=== PATIENT | male | born 1965 | race Caucasian/White ===

== ENCOUNTER 2016-05-07 15:16 | Inpatient (IN) | payer OTHER ==
--- NOTE | ~2016-05-07 | HP ---
Unit #: [id number] #: [id number] Patient: ALEXY MENDOZA [id number] [place] [address] [id number] MR#: [id number] NAME: ALEXY MENDOZA. ROOM: [facility] Age: 50 Sex: M Admission Date: 05/07/2016 : 1965 Attending Physician: Sarbjit Rodriguez M.D. Admitting Physician: Sarbjit Rodriguez M.D. Primary Care Physician: Generic Doctor Not In System HISTORY AND PHYSICAL HISTORY OF PRESENT ILLNESS Alexy is a 50 year old admitted to [facility] because of his polysubstance abuse which includes alcohol, IV heroin, methamphetamine and benzodiazepines. PAST MEDICAL HISTORY 1. Long history of polysubstance abuse to include IV drugs. 2. High blood pressure. 3. Hyperlipidemia. 4. Diabetes mellitus. 5. History of withdrawal seizures. 6. Lupus. PAST SURGICAL HISTORY Nothing reported ALLERGIES Penicillin (anaphylaxis). SOCIAL HISTORY Smokes 1 1/2 packs per day. Drinks alcohol frequently and has a history of poly illicit substance abuse. FAMILY HISTORY Medically noncontributory. REVIEW OF SYSTEMS CONSTITUTIONAL: No fever or chills. HEENT: Denies any sore throat, ear pain or runny nose. CARDIOVASCULAR: Denies chest pain, irregular heart rhythm or palpitations. CHEST: Denies shortness of breath or cough. No hemoptysis. GASTROINTESTINAL: Denies nausea, vomiting, diarrhea or chronic constipation. ENDOCRINE: Denies history of increased thirst or urination. No recent significant weight loss or gain. GENITOURINARY: Denies dysuria, frequency, or hematuria. SKIN: Denies any rashes. HEMATOLOGIC: Denies history of increased bleeding or bruising. MUSCULOSKELETAL: Denies any hot, swollen joints. No generalized muscle pain. NEUROLOGIC: Denies problems with vision or speech. No frequent, severe headaches. No numbness, tingling or weakness in any extremities. Denies loss of bladder or bowel control. Unit #: [id number] #: [id number] Patient: ALEXY MENDOZA CURRENT MEDICATIONS 1. Detox protocol 2. NovoLog per sliding scale. PHYSICAL EXAMINATION GENERAL: Alert, well-nourished, in no apparent distress. VITAL SIGNS: Blood pressure 170/100, heart rate 80, respirations 16, temperature 98.6. WEIGHT: 185 pounds. HEIGHT: 5'10". SKIN: Warm and dry without rash or lesion. HEENT: Normocephalic. TMs not viewed. Oral and nasal passages clear. Conjunctivae clear. Pupils equal, round and reactive to light and accommodation. Extraocular movements intact. NECK: Supple without lymphadenopathy or thyromegaly. HEART: Regular rate and rhythm without murmur. LUNGS: Clear. ABDOMEN: Soft, nontender. : Not done. EXTREMITIES: No evidence of cyanosis, clubbing or edema. Moves all extremities without focal deficit. NEUROLOGICAL: Grossly within normal limits. Cranial Nerves: II: Visual kurtz are intact. III, IV AND : Extraocular movements are intact. Pupils are equal, round and reactive to light. V: Facial sensation is grossly normal. VII: Facial movements and expression are normal. VIII: Auditory acuity grossly intact. IX, X: Uvula is midline. Phonation is normal. XI: Patient shrugs shoulders and turns head normally. XII: Tongue protrudes in the midline. Sensory and Motor Function: Sensory and motor sensation is grossly normal. Motor: moves all extremities well. Coordination: Gait is normal. Deep Tendon Reflexes: Intact. IMPRESSION Psychiatric admission RECOMMENDATIONS PSYCHIATRIC: Per psychiatrist. MEDICAL: I see no contraindications to participating in facility's activities. MEDICAL PROGNOSIS Good. MEDICAL CONDITION Stable. Dictated by... Celia Zamora P.A.-C. for Luis Champagne M.D. JBRENNON/elder Unit #: [id number] #: [id number] Patient: ALEXY MENDOZA Alex TD: 05/07/2016 20:32 JOB #: [id number] HISTORY AND PHYSICAL X Celia Zamora X HISTORY AND PHYSICAL
--- NOTE | ~2016-05-07 | PA ---
Unit #: [id number] #: [id number] Patient: AMINA MENDOZA [id number] [place] [address] [id number] MR#: [id number] NAME: AMINA MENDOZA. ROOM: 75 Age: 50 Sex: M Admission Date: 05/07/2016 : 1965 Date of Assessment: 05/08/2016 Attending Physician: Sarbjit Rodriguez M.D. Admitting Physician: Sarbjit Rodriguez M.D. Primary Care Physician: Generic Doctor Not In System PSYCHIATRIC ASSESSMENT IDENTIFYING INFORMATION The patient is a 50-year-old white male admitted with recurrent abuse of heroin. INFORMANT(S) Patient. RELIABILITY Good. CHIEF COMPLAINT None given. HISTORY OF PRESENT ILLNESS The patient is a 50-year-old white male last admitted to this facility in January 2016. He returns having recently relapsed on intravenous heroin use. The patient reports that he is presently unemployed and is homeless. He was reporting positive suicidal ideation and reports that he attempted suicide by means of intentional heroin overdose approximately 2 months ago. He is currently denying suicidal ideation and denies homicidal ideation. He does express interest in initiating treatment with Suboxone. For a more complete history of present illness, please refer to previous dictated notes. PAST PSYCHIATRIC HISTORY Reviewed, no changes. FAMILY HISTORY Noncontributory. SOCIAL HISTORY Reviewed, no changes. MEDICAL HISTORY Reviewed, no changes. MEDICATION HISTORY 1. Voltaren. 2. Loratadine. 3. Omeprazole. 4. Doxepin. 5. Vistaril. 6. Lisinopril. Unit #: [id number] #: [id number] Patient: AMINA MENDOZA 7. Ventolin. ALLERGIES Penicillin. MENTAL STATUS EXAM At this time, reveals the patient to be a well-developed, well-nourished white male appearing stated age. She appears to be in moderate physical distress related to opiate withdrawal. He is awake, alert and oriented in all spheres. His mood is mildly dysphoric. His affect constricted. Speech is generally relevant and coherent. There are no gross deficits in memory or cognition noted. Intelligence is judged to be in the average range based on fund of knowledge. The patient is cooperative throughout the interview. He is currently denying suicidal or homicidal ideation or psychotic features. Judgement and insight appear to be intact. ASSETS AND LIABILITIES Patient's assets, motivation for change. Liabilities, lack of resources. ADMITTING DIAGNOSES 1. Opioid use disorder. 2. Environmental allergies. 3. Gastroesophageal reflux disease. 4. Hypertension. 5. Migraine headache by history. PSYCHIATRIC PLAN/TREATMENT GOALS The patient remains hospitalized for safety and stabilization. We will continue previously prescribed home medications and routine detoxification protocol has been initiated. The patient will participate in appropriate arreguin and milieu activities. ESTIMATED LENGTH OF STAY Three to five days. Dictated by... Sarbjit Rodriguez M.D. SHIRA/gladis TD: 05/08/2016 15:27 JOB #: [id number] PSYCHIATRIC ASSESSMENT X Sarbjit Rodriguez MD X PSYCHIATRIC ASSESSMENT
--- NOTE | ~2016-05-07 | DS ---
Unit #: [id number] #: [id number] Patient: AMINA MENDOZA [id number] [place] [address] [id number] I MR#: [id number] NAME: AMINA MENDOZA. ROOM: [facility] Age: 50 Sex: M Admission Date: 05/07/2016 : 1965 Discharge Date: 05/11/2016 Attending Physician: Sarbjit Rodriguez M.D. Primary Care Physician: Generic Doctor Not In System DISCHARGE SUMMARY REASON FOR ADMISSION The patient is a 50-year-old single white male, admitted to the [facility] unit for opioid detox. HOSPITAL COURSE The patient was admitted to the [facility] unit and placed on routine detoxification protocol for opioids. Some medications were continued. The patient's detox was a brief and uneventful one. He did express some interest in initiation of Suboxone and was given information regarding a local Suboxone providers. By 05/11/2016, the patient requested discharge and it was so ordered. FINAL DIAGNOSES Opioid use disorder, environmental allergies, gastroesophageal reflux disease, hypertension, and asthma. DISPOSITION ON DISCHARGE The patient is discharged on the following medications: Ultram 50 mg q.8 hours p.r.n. pain, Sinequan 50 mg at h.s. for sleep, Vistaril 50 mg t.i.d. p.r.n. anxiety, Zestril 10 mg daily for hypertension, Proventil HFA one puff q.4 hours p.r.n. shortness of air, Zestril 10 mg once daily for hypertension, Protonix 40 mg daily for GERD, and Claritin 10 mg once daily for environmental allergies. DISCHARGE INSTRUCTIONS No dietary or physical restrictions were placed on the patient at the time of discharge. FOLLOWUP Followup will take place through the auspices of community mental health and chemical dependency treatment resources. PROGNOSIS The patient's prognosis is considered fair. Dictated by... Sarbjit Rodriguez M.D. CB/beatrice TD: 05/12/2016 02:10 JOB #: [id number] Unit #: [id number] #: [id number] Patient: AMINA MENDOZA DISCHARGE SUMMARY X Sarbjit oRdriguez MD DISCHARGE SUMMARY
--- NOTE | ~2016-05-07 | PN ---
Unit #: [id number] #: [id number] Patient: AMINA MENDOZA [id number] [facility] [address] [place] [address] [id number] MR#: [id number] NAME: AMINA MENDOZA. ROOM: [facility] Age: 50 Sex: M Admission Date: 05/07/2016 : 1965 Attending Physician: Sarbjit Rodriguez M.D. Admitting Physician: Sarbjit Rodriguez M.D. Primary Care Physician: Sanket Doctor Not In System [facility] PROGRESS NOTES DATE 05/09/2016 DISCUSSION The patient continues to complain of significant symptoms of opioid withdrawal with scores as high as 10 and 7 in the past 8 hours. We continue current treatment. Dictated by... Sarbjit Rodriguez M.D. SHIRA/gladis TD: 05/09/2016 15:12 JOB #: [id number] [facility] PROGRESS NOTES X Sarbjit Rodriguez MD X PROGRESS NOTE
[2016-05-08 09:45] LABS: URINE APPEARANCE CLEAR; URINE BILIRUBIN NEG (NEG); URINE BLOOD NEG (NEG); URINE COLOR YELLOW; URINE GLUCOSE NEG (NEG); URINE KETONE NEG (NEG); URINE LEUKOCYTE ESTERASE NEG (NEG); URINE NITRATE NEG (NEG); URINE PH 5.5 (5-8); URINE PROTEIN NEG (NEG); URINE SPECIFIC GRAVITY 1.023 (1.003-1.035); URINE UROBILINOGEN 0.2 MG/DL (NEG)
[2016-05-08 09:48] LABS: BASOPHIL# 0.1 X10e3 (0-0.3); BASOPHIL% 0.9 % (0-2.5); EOSINOPHIL# 0.1 X10e3 (0-0.7); EOSINOPHIL% 1.4 % (0.0-7.0); HEMATOCRIT 42.9 % (38.0-50.0); HEMOGLOBIN 14.2 gm/dL (13.0-16.0); LYMPHOCYTE# 2.7 X10e3 (1.0-3.5); LYMPHOCYTE% 36.9 % (17.0-45.0); MEAN CORPUSCULAR HEMOGLOBIN 28.1 PG (28-34); MEAN CORPUSCULAR HGB CONC 33.1 g/dL (30-36); MEAN PLATELET VOLUME 7.3 FL (6.5-11.5); MONOCYTE# 0.6 X10e3 (0-1.0); MONOCYTE% 7.7 % (3.0-12.0); NEUTROPHIL# 3.8 X10e3 (1.5-7.1); NEUTROPHIL% 53.1 % (40-75); PLATELET COUNT 377 X10e3 (140-420); RED BLOOD COUNT 5.05 X10e (3.90-5.60); RED CELL DISTRIBUTION WIDTH 14.1 % (11.0-15.5); WHITE BLOOD COUNT 7.2 X10e3 (4.0-10.5)
[2016-05-08 09:54] LABS: DIFF IND NO
[2016-05-08 10:06] LABS: AMPHETAMINE NEG (NEG); BARBITURATES NEG (NEG); BENZODIAZEPINES NEG (NEG); COCAINE NEG (NEG); MARIJUANA NEG (NEG); OPIATES POS (NEG); TRICYCLIC ANTIDEPRESSANTS NEG (NEG); U METHADONE NEG (NEG)
[2016-05-08 10:07] LABS: THYROID STIMULATING HORMONE 0.65 uIU/ml (0.34-5.60)
[2016-05-08 10:13] LABS: FREE THYROXIN (T4) 1.03 ng/dL (0.58-1.64)
[2016-05-08 10:26] LABS: ALBUMIN SERUM 3.5 g/dL (3.5-5.0); ALKALINE PHOSPHATASE 79 U/L (32-92); ALT (SGPT) 34 U/L (10-40); AST (SGOT) 22 U/L (10-42); BILIRUBIN,TOTAL 0.3 mg/dL (0.2-2.0); BLOOD UREA NITROGEN 12 mg/dL (9-23); BUN/CREATININE RATIO 17.14; CALCIUM SERUM 9.5 mg/dL (8.4-10.2); CARBON DIOXIDE 25 mmol/L (22-31); CHLORIDE 108 mmol/L (100-111); CREATININE SERUM 0.7 mg/dL (0.6-1.4); GLOM FILT RATE Estimated ABOVE60 mL/min (>60); GLUCOSE FASTING 91 mg/dL (70-110); POTASSIUM 5.2 mmol/L (3.5-5.1); PROTEIN TOTAL SERUM 6.8 g/dL (6.0-8.3); SODIUM 142 mmol/L (135-145)
== END 2016-05-11 14:45 | disposition home or self-care (01) | DRG 897 ==
LOC: P1E 15:16
PROVIDERS: Specialist
PROC: HZ2ZZZZ Detoxification Services for Substance Abuse Treatment (ICD-10-PCS; principal; 2016-05-07)
DX: F11.10 Opioid abuse, uncomplicated (principal); R45.851 Suicidal ideations; M32.9 Systemic lupus erythematosus, unspecified; K21.9 Gastro-esophageal reflux disease without esophagitis; I10 Essential (primary) hypertension; F10.10 Alcohol abuse, uncomplicated; F15.10 Other stimulant abuse, uncomplicated; F13.10 Sedative, hypnotic or anxiolytic abuse, uncomplicated; Z88.0 Allergy status to penicillin; F17.200 Nicotine dependence, unspecified, uncomplicated; Z56.0 Unemployment, unspecified; Z59.0 Homelessness; J45.909 Unspecified asthma, uncomplicated
CPT/HCPCS: 80053; 80307; 81003; 82947; 84439; 84443; 85025; 86592; J2550